=== PATIENT | female | born 1965 | race Caucasian/White ===

== ENCOUNTER → 2020-06-12 | Outpatient (CLI) | payer BC, OTHER | END | disposition home or self-care (01) | LOC: LABWHC1 16:18 | PROVIDERS: ATTEND Family Medicine | DX: Z20.822 Contact with and (suspected) exposure to COVID-19 (principal) | CPT/HCPCS: U0003; C9803 ==

== ENCOUNTER 2020-06-22 08:06 | Day surgery (SDC) | payer BC, OTHER ==
[2020-06-19 14:39] VITALS: BMI 27.4
[~2020-06-22 08:06] MED LIST: LACTATED RINGERS 1,000 ML IV SCH
[2020-06-22 08:24] VITALS: TEMP 97.8
[2020-06-22] MEDS ORDERED: LACTATED RINGERS 1,000 ML IV ONE (08:24)
--- NOTE | 2020-06-22 08:27 | P.GSHP ---
History of Present Illness H&P Date: 06/22/20 CHIEF COMPLAINT: Colon screen HISTORY OF PRESENT ILLNESS: The patient is a 55-year-old female who presents for colon screen. Lower endoscopy was offered for further evaluation and management. PAST MEDICAL HISTORY: Please see list. PAST SURGICAL HISTORY: Please see list. MEDICATIONS: Please see list. ALLERGIES: Please see list. SOCIAL HISTORY: No illicit drug use FAMILY HISTORY: No reports of Crohn disease or ulcerative colitis. REVIEW OF ORGAN SYSTEMS: CONSTITUTIONAL: No reports of fevers or chills. PHYSICAL EXAM: VITAL SIGNS: Stable GENERAL: Well-developed pleasant in no acute distress. HEENT: No scleral icterus. Extraocular movements grossly intact. Moist buccal mucosa. NECK: Supple without lymphadenopathy. CHEST: Unlabored respirations. Equal bilateral excursions. CARDIOVASCULAR: Regular rate and rhythm. Distal 2+ pulses. ABDOMEN: Soft, nontender, nondistended. MUSCULOSKELETAL: No clubbing, cyanosis, or edema. ASSESSMENT: 1. Colon screen. PLAN: 1. Recommend proceeding with a lower endoscopy Past Medical History Past Medical History: No Reported History Additional Past Medical History / Comment(s): endometriosis History of Any Multi-Drug Resistant Organisms: None Reported Past Surgical History: Hysterectomy Additional Past Surgical History / Comment(s): toe surgery Past Anesthesia/Blood Transfusion Reactions: Motion Sickness, Postoperative Nausea & Vomiting (PONV) Smoking Status: Never smoker Medications and Allergies Home Medications Medication Instructions Recorded Confirmed Type Atorvastatin Calcium [Lipitor] 20 mg PO DAILY 06/19/20 06/19/20 History Ergocalciferol [Vitamin D2 (1250 1,250 mcg PO WE 06/19/20 06/19/20 History Mcg = 78457 Iu)] Microplex Vitamin 1 tab PO DAILY 06/19/20 06/19/20 History [place]-3 Fatty Acids [[place]-3] 1,000 mg PO DAILY 06/19/20 06/19/20 History Allergies Allergy/AdvReac Type Severity Reaction Status Date / Time bacitracin Allergy Rash/Hives Verified 06/19/20 14:32 [From Neosporin ([id number])] bacitracin zinc Allergy Rash/Hives Verified 06/19/20 14:32 [From Neosporin ([id number])] neomycin sulfate Allergy Rash/Hives Verified 06/19/20 14:32 [From Neosporin ([id number])] polymyxin B Allergy Rash/Hives Verified 06/19/20 14:32 [From Neosporin ([id number])] Surgical - Exam Vital Signs Temp Pulse Resp BP Pulse Ox 97.8 F 70 18 125/72 98 06/22/20 08:23 06/22/20 08:23 06/22/20 08:23 06/22/20 08:23 06/22/20 08:23
[2020-06-22] MEDS ORDERED: LIDOCAINE 1% INJ 10MG/ML (20 ML MDV) ONE (08:59)
[2020-06-22] MEDS ORDERED: PROPOFOL 10 MG/ML 20 ML VIAL IV ONE (08:59)
--- NOTE | 2020-06-22 09:33 | P.PCN ---
Date of Procedure: 06/22/20 Description of Procedure: PREOPERATIVE DIAGNOSIS: Colonoscopy screening POSTOPERATIVE DIAGNOSIS: Colonoscopy screening Tubular adenoma cecum Tubular adenoma mid transverse colon Splenic flexure polyp Sigmoid colon OPERATION: Colonoscopy to the ileocecal valve and appendiceal orifice, cecum Colonoscopy with hot snare polypectomy Colonoscopy with cold forceps biopsy SURGEON: Rylee Horne MD. ANESTHESIA: MAC. INDICATIONS: The patient is an 55-year-old female who presents family for her first col onoscopy screening. Benefits and risks were described and informed consent was obtained. DESCRIPTION OF PROCEDURE: The patient had undergone Suprep. The patient had been brought into the operating room and laid in the left lateral decubitus position. After adequate intravenous sedation, the rectum was examined with 2% lidocaine jelly. External hemorrhoids were encountered. The rectal tone was within normal limits. No lesions were palpated in the rectal vault. An Olympus colonoscope was advanced until the cecum, ileocecal valve and appendiceal orifice were clearly viewed. The prep was excellent. No sigmoid diverticulosis was encountered. Colonic polyps were found and removed. No evidence of focal colitis was found. Retroflexion of the scope demonstrated grade 1 internal hemorrhoids without active bleeding or inflammation. The colon was desufflated. The patient had tolerated the procedure well. Withdrawal time was over 6 minutes. FINDINGS: Aronchick preparation quality scale 1 (1-5) Internal hemorrhoids, grade 1 External hemorrhoids, grade 1. No arteriovenous malformations. No sigmoid diverticulosis Removal of 5 polyps: - Snare polypectomy mid transverse colon, 5 mm tubulovillous adenoma polyp. - Snare polypectomy at 15 cm from anal verge, 4 mm flat villous adenoma polyp, sigmoid colon - Cold forceps biopsy at splenic flexure, 5 mm polyp. - Cold forceps biopsy at cecum 2, 3 to 4 mm polyp. No focal colitis. RECOMMENDATIONS: Repeat colonoscopy 2 years, 2022 Plan - Discharge Summary Discharge Rx Participant: No New Discharge Prescriptions: Continue Ergocalciferol [Vitamin D2 (1250 Mcg = 69475 Iu)] 1,250 mcg PO WE Liberal-3 Fatty Acids [Liberal-3] 1,000 mg PO DAILY Atorvastatin Calcium [Lipitor] 20 mg PO DAILY Microplex Vitamin 1 tab PO DAILY Discharge Medication List Atorvastatin Calcium [Lipitor] 20 mg PO DAILY 06/19/20 [History] Ergocalciferol [Vitamin D2 (1250 Mcg = 67322 Iu)] 1,250 mcg PO WE 06/19/20 [History] Microplex Vitamin 1 tab PO DAILY 06/19/20 [History] Liberal-3 Fatty Acids [Liberal-3] 1,000 mg PO DAILY 06/19/20 [History] Follow up Appointment(s)/Referral(s): Rylee Horne MD [STAFF PHYSICIAN] - As Needed Patient Instructions/Handouts: *Surgery [facility] - (Anesthesia) Endoscopy Discharge Instructions, *Surgery [facility] - (Anesthesia) Discharge Instructions Outpatient Surgery, Colorectal Polyps (DC) Activity/Diet/Wound Care/Special Instructions: Repeat colonoscopy 2 years, 2022 Discharge Disposition: HOME SELF-CARE
[2020-06-22 09:46] VITALS: BP 116/77; PULSE 57; RESP 16
== END 2020-06-22 10:03 | disposition home or self-care (01) ==
LOC: ORWHC2ENDO 08:06
PROVIDERS: ATTEND Surgery Plastic and Reconstructive Surgery
DX: Z12.11 Encounter for screening for malignant neoplasm of colon (principal); D12.0 Benign neoplasm of cecum; D12.3 Benign neoplasm of transverse colon; D12.5 Benign neoplasm of sigmoid colon; K64.0 First degree hemorrhoids; E78.5 Hyperlipidemia, unspecified; Z87.42 Personal history of other diseases of the female genital tract; Z90.710 Acquired absence of both cervix and uterus; Z98.890 Other specified postprocedural states; Z79.899 Other long term (current) drug therapy; Z88.8 Allergy status to other drugs, medicaments and biological substances; Z88.3 Allergy status to other anti-infective agents
CPT/HCPCS: 88305; 45380; 45385; J2001; J2704

== ENCOUNTER → 2024-03-29 | Outpatient (CLI) | payer OTHER ==
--- NOTE | 2024-03-29 14:57 | MM ---
Reason for Exam: Screening (asymptomatic). Last mammogram was performed 1 year(s) and 10 month(s) ago. Patient History: Menarche at age 13. First Full-Term at age 27. Left ovary removed at age 43. Right ovary removed at age 43. Hysterectomy at age 43. Postmenopausal. Risk Values: Eileen 5 year model risk: 1.5%. NCI Lifetime model risk: 8.5%. Prior Study Comparison: 09/24/2012 Screening Mammogram, [place]. 01/20/2015 Bilateral Screening Mammogram, [facility]. 05/03/2022 Bilateral MG screening mammo w CAD, [facility]. Tissue Density: There are scattered areas of fibroglandular density. Findings: Analyzed By CAD. Right breast: There is no suspicious group of microcalcifications or new suspicious mass. Left breast: There is no suspicious group of microcalcifications or new suspicious mass. Overall Assessment: Negative, BI-RAD 1 Management: Screening Mammogram of both breasts in [address] [facility] will attempt to contact patient to return for supplemental views and ultrasound if indicated. Patient should continue monthly self-breast exams. A clinical breast exam by your physician is recommended on an annual basis. This exam should not preclude additional follow-up of suspicious palpable abnormalities. Note on Eileen scores and lifetime risk: 1. A Eileen score greater than 3% is considered moderate risk. If this is the case, consider specialist referral to assess eligibility for a risk reducing agent. 2. If overall lifetime risk for the development of breast cancer is 20% or higher, the patient may qualify for future screening with alternating mammogram and breast MRI. [facility], , 03/29/2024 2:54 PM. Electronically signed and approved by: Zane Wise DO
== END | disposition home or self-care (01) ==
LOC: RADMAMWWP 14:12
PROVIDERS: ATTEND Family Medicine
DX: Z12.31 Encounter for screening mammogram for malignant neoplasm of breast (principal); R92.323 Mammographic fibroglandular density, bilateral breasts; Z78.0 Asymptomatic menopausal state; Z90.722 Acquired absence of ovaries, bilateral
CPT/HCPCS: 77067

== ENCOUNTER → 2024-06-24 | Day surgery (SDC) | payer OTHER ==
[~2024-06-24] MED LIST changes: -LACTATED RINGERS 1,000 ML IV SCH; +LIDOCAINE 1% (10MG/ML) FOR IV START INTRADERMA PRN; +LIDOCAINE 1% INJ 10MG/ML (20 ML MDV) ONE; +PROPOFOL 10 MG/ML 20 ML VIAL IV ONE
--- NOTE | 2024-06-24 08:11 | P.GSHP ---
History of Present Illness H&P Date: 06/24/24 CHIEF COMPLAINT: GERD and colon screen HISTORY OF PRESENT ILLNESS: The patient is a 59-year-old female who presents with gastroesophageal reflux disease and need for colon screen. Upper and lower endoscopy were offered for further evaluation and management. PAST MEDICAL HISTORY: Please see list. PAST SURGICAL HISTORY: Please see list. MEDICATIONS: Please see list. ALLERGIES: Please see list. SOCIAL HISTORY: No illicit drug use FAMILY HISTORY: No reports of Crohn disease or ulcerative colitis. REVIEW OF ORGAN SYSTEMS: CONSTITUTIONAL: No reports of fevers or chills. GI: Denies any blood in stools or constipation. PHYSICAL EXAM: VITAL SIGNS: Stable GENERAL: Well-developed pleasant in no acute distress. HEENT: No scleral icterus. Extraocular movements grossly intact. Moist buccal mucosa. NECK: Supple without lymphadenopathy. CHEST: Unlabored respirations. Equal bilateral excursions. CARDIOVASCULAR: Regular rate and rhythm. Distal 2+ pulses. ABDOMEN: Soft, nondistended. MUSCULOSKELETAL: No clubbing, cyanosis, or edema. ASSESSMENT: 1. Gastroesophageal reflux disease 2. Colon screen. PLAN: 1. Recommend proceeding with an upper and lower endoscopy Past Medical History Past Medical History: Hyperlipidemia History of Any Multi-Drug Resistant Organisms: None Reported Past Surgical History: Hysterectomy Additional Past Surgical History / Comment(s): colonoscopy Past Anesthesia/Blood Transfusion Reactions: No Reported Reaction Smoking Status: Never smoker Medications and Allergies Home Medications Medication Instructions Recorded Confirmed Type Atorvastatin Calcium [Lipitor] 20 mg PO DAILY 06/19/20 06/23/24 History Ergocalciferol [Vitamin D2 (1250 1,250 mcg PO DAILY 06/19/20 06/23/24 History Mcg = 03373 Iu)] Microplex Vitamin 1 tab PO DAILY 06/19/20 06/23/24 History [place]-3 Fatty Acids [[place]-3] 1,000 mg PO DAILY 06/19/20 06/23/24 History Allergies Allergy/AdvReac Type Severity Reaction Status Date / Time bacitracin Allergy Rash/Hives Verified 06/23/24 09:04 [From Neosporin ([id number])] bacitracin zinc Allergy Rash/Hives Verified 06/23/24 09:04 [From Neosporin (hif-ona-joyus)] neomycin sulfate Allergy Rash/Hives Verified 06/23/24 09:04 [From Neosporin ([id number]-[id number])] polymyxin B Allergy Rash/Hives Verified 06/23/24 09:04 [From Neosporin ([id number]-[id number]-[id number])]
[2024-06-24] MEDS: IV FLUID CONTINUATION 1,000 ML IV ONE (12:18)
[2024-06-24 12:37] VITALS: RESP 16; TEMP 98
[2024-06-24] MEDS: LACTATED RINGERS 1,000 ML IV SCH (12:38)
--- NOTE | 2024-06-24 13:12 | P.PCN ---
Date of Procedure: 06/24/24 Description of Procedure: PREOPERATIVE DIAGNOSIS: Gastroesophageal reflux disease. POSTOPERATIVE DIAGNOSIS: Gastroesophageal reflux disease Gastric polyps OPERATION: Esophagogastroduodenoscopy with cold forceps biopsies along esophagus, antrum and duodenum SURGEON: Rylee Horne MD ANESTHESIA: MAC. INDICATIONS: The patient is a 60-year-old female who presents with reflux disease. Benefits and risks of the procedure were described. Informed consent was obtained. DESCRIPTION: The patient was brought into the endoscopy suite and laid in the left lateral decubitus position. An Olympus gastroscope was passed along the posterior oropharynx down to the distal esophagus where the squamocolumnar junction was encountered at 40 cm from the incisors. The stomach was entered and no bile reflux was found. Additional findings are listed below. Biopsies with cold forceps were obtained of the antrum. The first through third portion of the duodenum was examined. Retroflexion of the scope confirmed Hill grade 1 lower esophageal valve. The squamocolumnar junction demonstrated LA grade A erosive e sophagitis. The stomach was desufflated. The patient tolerated the procedure well. FINDINGS: Squamocolumnar junction 40 cm from the incisors. Diaphragmatic hiatus at 40 cm. Hill grade 1 lower esophageal valve. LA grade A erosive esophagitis. Biopsies obtained Biopsies obtained of the duodenum. Chronic gastritis with biopsies obtained. RECOMMENDATIONS: Upper endoscopy as needed.
[2024-06-24 13:47] VITALS: BP 122/70; PULSE 75
--- NOTE | 2024-06-25 19:52 | P.PCN ---
Date of Procedure: 06/24/24 Description of Procedure: PREOPERATIVE DIAGNOSIS: Personal history of colon polyps Colonoscopy screening POSTOPERATIVE DIAGNOSIS: Tubular adenoma cecum Internal hemorrhoids, grade 2 OPERATION: Colonoscopy to the ileocecal valve and appendiceal orifice, cecum Colonoscopy with hot snare polypectomy SURGEON: Rylee Horne MD. ANESTHESIA: MAC. INDICATIONS: The patient is an 59-year-old female who presents personal history of colon polyps. Last colonoscopy 5 years. Benefits and risks were described and informed consent was obtained. DESCRIPTION OF PROCEDURE: The patient had undergone Suprep. The patient had been brought into the operating room and laid in the left lateral decubitus position. After adequate intravenous sedation, the rectum was examined with 2% lidocaine jelly. The prostate was unremarkable. External hemorrhoids were encountered. The rectal tone was within normal limits. No lesions were palpated in the rectal vault. An Olympus colonoscope was advanced until the cecum, ileocecal valve and appendiceal orifice were clearly viewed. The prep was excellent. No large sigmoid diverticulosis was encountered. Colonic polyps were found and removed. No evidence of focal colitis was found. Retroflexion of the scope demonstrated grade 2 internal hemorrhoids without active bleeding or inflammation. The colon was desufflated. The patient had tolerated the procedure well. Withdrawal time was over 6 minutes. FINDINGS: Aronchick preparation quality scale 1 (1-5) Internal hemorrhoids, grade 2 External hemorrhoids, grade 2. No arteriovenous malformations. No large sigmoid diverticulosis Removal of 1 polyps: - Snare polypectomy cecum, 5 mm tubulovillous adenoma No focal colitis. RECOMMENDATIONS: Recommend repeat colonoscopy 3 years, 2027 Plan - Discharge Summary Discharge Rx Participant: No New Discharge Prescriptions: Continue Ergocalciferol [Vitamin D2 (1250 Mcg = 35735 Iu)] 1,250 mcg PO DAILY [place]-3 Fatty Acids [[place]-3] 1,000 mg PO DAILY Atorvastatin Calcium [Lipitor] 20 mg PO DAILY Microplex Vitamin 1 tab PO DAILY Discharge Medication List Atorvastatin Calcium [Lipitor] 20 mg PO DAILY 06/19/20 [History] Ergocalciferol [Vitamin D2 (1250 Mcg = 95581 Iu)] 1,250 mcg PO DAILY 06/19/20 [History] Microplex Vitamin 1 tab PO DAILY 06/19/20 [History] [place]-3 Fatty Acids [[place]-3] 1,000 mg PO DAILY 06/19/20 [History] Follow up Appointment(s)/Referral(s): Rylee Horne MD [STAFF PHYSICIAN] - 07/20/24 11:00 am Patient Instructions/Handouts: *Surgery [facility] - (Anesthesia) Discharge Instructions Outpatient Surgery, Colorectal Polyps (GEN), Gastric Polyps (GEN), Colonoscopy (DC), Upper Endoscopy (DC) Activity/Diet/Wound Care/Special Instructions: Repeat colonoscopy 3 years, 2027 Discharge Disposition: HOME SELF-CARE
== END | disposition home or self-care (01) ==
LOC: ORWHC2ENDO 11:41
PROVIDERS: ATTEND Surgery Plastic and Reconstructive Surgery
DX: Z12.11 Encounter for screening for malignant neoplasm of colon (principal); D12.0 Benign neoplasm of cecum; K31.9 Disease of stomach and duodenum, unspecified; K29.70 Gastritis, unspecified, without bleeding; K21.00 Gastro-esophageal reflux disease with esophagitis, without bleeding; K31.7 Polyp of stomach and duodenum; E78.5 Hyperlipidemia, unspecified; K64.1 Second degree hemorrhoids; Z90.710 Acquired absence of both cervix and uterus; Z86.0100 Personal history of colon polyps, unspecified; Z79.899 Other long term (current) drug therapy; Z88.1 Allergy status to other antibiotic agents; Z88.8 Allergy status to other drugs, medicaments and biological substances
CPT/HCPCS: 88305; 88342; 45385; 43239; J2003; J2704